=== PATIENT | female | born 1955 | race African-American/Black ===

== ENCOUNTER 2020-06-24 16:47 | Emergency (ER) | payer OTHER ==
[~2020-06-24] VITALS: Ht 162.6 cm; Wt 53.5 kg
[2020-06-24 20:16] LABS: ABSOLUTE NEUTROPHILS 3.8 thou/uL (1.4-8.2); BASOPHILS 0.3 % (0.0-2.0); EOSINOPHILS 0.3 % (0.0-3.0); HEMOGLOBIN 10.6 gm/dL (12.0-15.0); LYMPHOCYTES 17.5 % (24.0-44.0); MCH 27.7 pg (26.0-34.0); MCV 83.9 fL (80.0-100.0); MONOCYTES 11.4 % (1.0-8.0); PLATELET COUNT 260 thou/uL (150-400); POLYS 70.5 % (36.0-66.0); RBC 3.81 mil/uL (4.20-5.00); RDW 13.3 % (10.5-14.5); WBC 5.4 thou/uL (4.0-11.0)
[2020-06-24 20:28] LABS: CALCIUM 9.2 mg/dL (8.5-10.1); CREATININE 1.4 mg/dL (0.6-1.0)
[2020-06-24 20:32] LABS: ALBUMIN 2.5 g/dL (3.4-5.0); TOTAL BILIRUBIN 0.3 mg/dL (0.2-1.0); TOTAL PROTEIN 7.8 g/dL (6.4-8.2)
[2020-06-24] MEDS ORDERED: GLYBURIDE 5 MG T5 M1 PO (21:16)
[2020-06-24] MEDS ORDERED: NORVASC 2.5 MG2.5 M1 PO (21:17)
[2020-06-24] MEDS ORDERED: ZESTRIL5 MG PO (21:18)
[2020-06-24] MEDS ORDERED: HYDROCHLOROTHIA25 M2 PO (21:19)
[2020-06-24 22:31] VITALS: BP 185/106
== END 2020-06-24 22:30 | disposition home or self-care (01) ==
LOC: ER 16:47
PROVIDERS: Physician Assistant
DX: E11.621 Type 2 diabetes mellitus with foot ulcer (principal); L97.519 Non-pressure chronic ulcer of other part of right foot with unspecified severity; Z79.899 Other long term (current) drug therapy

== ENCOUNTER 2020-07-21 18:59 | Inpatient (IN) | payer OTHER ==
[~2020-07-21] VITALS: Ht 149.9 cm; Wt 48.6 kg
--- NOTE | ~2020-07-21 | HC ---
[facility] [place] [address] CONSULTATION Name: GAGE MENDOSA Room #: 210-P ADM IN ..#: [id number] Admission: 07/21/20 Attend Phys: Avinash Calvo MD Discharge: Date of : 51 Report #: [id number] THIS REPORT FOR: cc: KIMANI - No family physician/PCP KIMANI - No family physician/PCP Sky Robertson MD ~ DATE OF SERVICE: 07/22/2020 WOUND CARE CONSULTATION PERSONAL PHYSICIAN: Ford. CHIEF COMPLAINT: Left great toe wound amputation site. HISTORY OF PRESENT ILLNESS: This is a 65-year-old black female with a history of diabetes, who was admitted through the Emergency Department last night for possible stroke with associated slurred speech, right upper extremity weakness and a facial droop. Upon admission, the patient was noted to have a left great toe amputation site, which was not healing. The patient states that amputation occurred secondary to what looks like dry gangrene approximately a month ago. An x-ray was performed in the Emergency Department, which did not show any signs of acute osteomyelitis. The patient denies any other associated wounds at this time. PAST MEDICAL HISTORY: Type 2 diabetes, hypertension, hyperlipidemia, gastroesophageal reflux disease, recent left toe amputation. CURRENT MEDICATIONS: Multiple and I reviewed her medication list. DRUG ALLERGIES: None. SOCIAL HISTORY: The patient denies alcohol or tobacco use. Resides at home independently prior to the admission. FAMILY HISTORY: Not pertinent to current medical condition. REVIEW OF SYSTEMS: CONSTITUTIONAL: The patient denies fevers or chills. NEUROLOGIC: The patient had a right upper extremity weakness and facial droop with slurred speech yesterday. The patient denies any headache. EYES: No complaints. ENT: No complaints. CARDIAC: The patient denies chest pain, palpitations, peripheral edema. RESPIRATORY: The patient denies shortness of breath, cough or wheezes. GASTROINTESTINAL: The patient denies nausea, vomiting, abdominal pain. [facility] [address] [place] [address] CONSULTATION Name: GAGE MENDOSA Room #: [address] [place] [address] [place] [facility]#: [id number] Admission: 07/21/20 Attend Phys: Avinash Calvo MD Discharge: Date of : 53 Report #: [id number] GENITOURINARY: The patient denies urgency or frequency. MUSCULOSKELETAL: No complaints. SKIN: There is a nonhealing surgical wound to the left great toe amputation site. PHYSICAL EXAMINATION: VITAL SIGNS: Temperature 36.8, pulse 70, respirations 20, BP 148/87. GENERAL: This is an alert and oriented x 3, chronically ill-appearing black female who is in no obvious distress. HEENT: Normocephalic. There is slight facial drooping. Pupils are round. Sclerae white. Mucous membranes are dry. NECK: Supple, without JVD. LUNGS: Clear. HEART: Regular. ABDOMEN: Soft, nontender. EXTREMITIES: The patient moves all extremities without difficulty. Evaluation of left lower extremity reveals faint dorsalis pedis and posterior tibial pulse. There is a nonhealing surgical site over the area of the previous great toe, which is filled with slough and probes to bone. The surrounding area is extremely dry skin and desiccated. There is no actual tenderness or warmth. No other associated wounds are noted on the left foot. Right foot is without associated ulcerations or wounds. There is minimal to no edema to bilateral lower extremities. NEUROLOGIC: Cranial nerves 2-12 grossly intact. Motor and sensory grossly intact except for the facial drooping and mild weakness in the right upper extremity. LABORATORY DATA: White count 5.6, hemoglobin 10.2. Sed rate 36. BUN 15, creatinine 1.2, albumin 3.2. C-reactive protein 23.3. X-ray of the left foot shows no acute abnormalities, specifically no bony destruction. IMPRESSION: 1. Nonhealing surgical wound, left great toe amputation site, status post great toe amputation. 2. Diabetes mellitus type 2. 3. Concern for peripheral arterial disease by exam. 4. Recent concern for cerebrovascular accident versus transient ischemic attack. 5. Hypertension. 6. Protein-calorie malnutrition, moderate, albumin of 3.2. PLAN: At this time, we will check arterial Dopplers bilateral lower extremities to evaluate for arterial disease. We will pack the great toe with Xeroform and gauze daily. We will consult Podiatry, Dr. Scott, for evaluation of possible revision of the great toe amputation site. We will make [place] [address] CONSULTATION Name: GAGE MENDOSA Room #: 210-P ADM IN M.R.#: [id number] Admission: 07/21/20 Attend Phys: Avinash Calvo MD Discharge: Date of : 53 Report #: [id number] patient's protein supplementation for healing. We will utilize physical and occupational therapy for strengthening. We will continue all other current medications at this time. I appreciate ability to consult. We will continue to follow the patient. By: 1105 09 Sky Robertson MD /tawana
[~2020-07-21 18:59] MED LIST: GLYBURIDE 5 MG T5 M1 PO; HYDROCHLOROTHIA25 M2 PO; NORVASC 2.5 MG2.5 M1 PO; ZESTRIL5 MG PO
[2020-07-21 19:05] VITALS: BP 149/93
[2020-07-21] MEDS ORDERED: CARVEDILOL12.5 MG PO (19:18)
[2020-07-21] MEDS ORDERED: KEFLEX500 M1 PO (19:19)
[2020-07-21] MEDS ORDERED: NORCO 10-325 T1 EACH PO (19:19)
[2020-07-21] MEDS ORDERED: ONDANSETRON ODT4 MG PO (19:19)
[2020-07-21 19:30] LABS: HEMATOCRIT 31.5 % (37.0-47.0); HEMOGLOBIN 10.2 gm/dL (12.0-15.0); MCH 27.1 pg (26.0-34.0); MCHC 32.5 g/dL (28.0-37.0); MCV 83.2 fL (80.0-100.0); RBC 3.78 mil/uL (4.20-5.00); RDW 14.6 % (10.5-14.5); WBC 5.6 thou/uL (4.0-11.0)
[2020-07-21 19:36] LABS: ANION GAP 11 mmol/L (7-16); BUN 15 mg/dL (7-18); CALCIUM 9.3 mg/dL (8.5-10.1); CHLORIDE 100 mmol/L (98-107); CO2 26 mmol/L (21-32); CREATININE 1.2 mg/dL (0.6-1.0); GLUCOSE 128 mg/dL (74-106); POTASSIUM 3.6 mmol/L (3.5-5.1); SODIUM 137 mmol/L (136-145)
[2020-07-21 19:46] LABS: ALBUMIN 3.2 g/dL (3.4-5.0); SGOT 18 U/L (15-37); SGPT 19 U/L (30-65); TOTAL BILIRUBIN 0.3 mg/dL (0.2-1.0); TOTAL PROTEIN 7.1 g/dL (6.4-8.2); TROPONIN-I <0.06 ng/mL (<0.06)
[2020-07-21 19:51] LABS: ABSOLUTE NEUTROPHILS 2.6 thou/uL (1.4-8.2)
[2020-07-21 19:52] LABS: ANISOCYTOSIS 1+; HYPOCHROMASIA 1+; PLATELET COUNT 199 thou/uL (150-400); POLYCHROMASIA SLIGHT
[2020-07-21 20:57] LABS: URINE BILIRUBIN NEGATIVE (Negative); URINE BLOOD NEGATIVE (Negative); URINE CLARITY CLEAR; URINE COLOR YELLOW; URINE GLUCOSE-RANDOM* NEGATIVE (Negative); URINE KETONES NEGATIVE (Negative); URINE LEUKOCYTES-REFLEX NEGATIVE (Negative); URINE NITRITE-REFLEX NEGATIVE (Negative); URINE PROTEIN (DIPSTICK) 2+ (Negative); URINE UROBILINOGEN 0.2 E.U./dl (0.2-1.0)
[2020-07-21] MEDS ORDERED: LANTUS SOL100 UNIT/1 SUBQ (21:06)
[2020-07-21 21:35] LABS: BACTERIA-REFLEX 1-9 Few /HPF (None Seen); CASTS None Seen /LPF (None Seen); CRYSTALS None Seen /LPF (None Seen); MUCUS 0-3 Light strn/LPF (None Seen); SQUAMOUS 0-3 Few /LPF (0-3); URINE RBC 0-2 Rare /HPF (0-2); URINE WBC-REFLEX 0-5 Rare /HPF (0-5)
[2020-07-21 21:50] VITALS: BP 147/102
[2020-07-21 22:52] VITALS: BP 131/79
[2020-07-21 23:12] VITALS: BP 140/97
[2020-07-22 01:00] VITALS: BP 128/80
[2020-07-22 04:00] VITALS: BP 129/71
--- NOTE | 2020-07-22 04:16 | NUR ---
PT NEW ADMIT YESTERDAY WITH STROKE LIKE SX. ALERT AND ORIENTED. VSS. REPORTS MILD ABDOMINAL PAIN. PT HAS LEFT GREATER TOE AMPUTATED. ASSESSMENTS COMPLETED. SR ON THE MONITOR, DENIES CHEST PAIN. WILL CONTINUE TO MONITOR AND FOLLOW POC.
[2020-07-22 07:00] VITALS: BP 148/87
--- NOTE | 2020-07-22 09:46 | 2DMMODE ---
[facility] [place] [address] 2 D/M-MODE ECHOCARDIOGRAM Name: GAGE MENDOSA Room #: 210-P ADM IN M.R.#: [id number] Admission: 07/21/20 Attend Phys: Avinash Calvo MD Discharge: Date of : 53 Report #: [id number] THIS REPORT FOR: cc: KIMANI - Melisa family physician/PCP KIMANI - Melisa family physician/PCP Baldemar Patrick MD [facility] ~ APPROVED REPORT Study performed: 07/22/2020 08:40:15 EXAM: Comprehensive 2D, Doppler, and color-flow Echocardiogram Patient Location: Bedside Room #: 210 Status: routine BSA: 1.41 HR: 82 bpm BP: 147/87 mmHg Rhythm: NSR Other Information Study Quality: Good Indications CVA/TIA Diabetes Hypertension/HDD Echo Enhancing Agent Indication: Rule out Shunt Agent(s) / Amount(s) Used: Agitated Saline 7 cc 2D Dimensions RVDd: 27.90 mm IVSd: 12.66 (7-11mm) LVOT Diam: 17.47 (18-24mm) LVDd: 40.38 mm PWd: 12.31 (7-11mm) Ascending Ao: 26.28 (22-36mm) LVDs: 28.23 (25-40mm) Aortic Root: 36.77 mm IVC: 13.00 mm Volumes Left Atrial Volume (Systole) Single Plane 4CH: 29.24 mL Single Plane 2CH: 25.75 mL LA ESV Index: 21.00 mL/m2 [facility] [employer] [address] [place] [address] 2 D/M-MODE ECHOCARDIOGRAM Name: MENDOSAGAGE Room #: 210-[facility] IN .R.#: [id number] Admission: 07/21/20 Attend Phys: Avinash Calvo MD Discharge: Date of : 53 Report #: [id number] Aortic Valve AoV Peak Marquis.: 1.33 m/s AO Peak Gr.: 7.05 mmHg LVOT Max P.97 mmHg LVOT Max V: 1.00 m/s MARY Vmax: 1.80 cm2 Mitral Valve E/A Ratio: 0.8 MV Decel. Time: 237.29 ms MV E Max Marquis.: 0.89 m/s MV A Marquis.: 1.13 m/s MV PHT: 68.81 ms IVRT: 189.16 ms Pulmonary Valve PV Peak Marquis.: 1.01 m/s PV Peak Gr.: 4.08 mmHg Pulmonary Vein P Vein S: 0.62 m/s P Vein A: 0.29 m/s P Vein D: 0.27 m/s P Vein A Dur.: 96.9 msec P Vein S/D Ratio: 2.30 Tricuspid Valve TR Peak Marquis.: 2.53 m/s TR Peak Gr.: 25.57 mmHg PA Pressure: 30.00 mmHg Left Ventricle The left ventricle is normal size. There is normal LV segmental wall motion. Mild concentric left ventricular hypertrophy. The left ventricular systolic function is normal. The left ventricular ejection fraction is within the normal range. LVEF is 55-60%. Grade I - abnormal relaxation pattern. Right Ventricle The right ventricle is normal size. The right ventricular systolic function is normal. Atria The left atrium size is normal. Interatrial septum is intact without evidence of ASD or PFO. The right atrium size is normal. Aortic Valve The aortic valve is normal in structure. The Aortic valve is sclerotic. Trace aortic regurgitation. There is no aortic valvular stenosis. [facility] [address] [place] [address] 2 D/M-MODE ECHOCARDIOGRAM Name: AGGE MENDOSA Room #: 210-[facility] IN ..#: [id number] Admission: 07/21/20 Attend Phys: Avinash Calvo MD Discharge: Date of : 53 Report #: [id number] Mitral Valve The mitral valve is normal in structure. Trace to mild mitral regurgitation. No evidence of mitral valve stenosis. Tricuspid Valve The tricuspid valve is normal in structure. There is trace tricuspid regurgitation. 30 mmHg. There is no pulmonary hypertension. Pulmonic Valve The pulmonary valve is normal in structure. There is no pulmonic valvular regurgitation. Great Vessels The aortic root is normal in size. IVC is normal in size and collapses >50% with inspiration. Pericardium There is no pericardial effusion. <Conclusion> Normal left ventricular size Mild left ventricular concentric hypertrophy Grade 1 diastolic dysfunction EF 50-55% Normal right ventricle size and function Normal atrial size Normal aortic valve structure and function Mild mitral valve insufficiency Trace of tricuspid valve insufficiency Pulmonary artery systolic pressure estimated at 30 mmHg No pericardial effusion <ELECTRONICALLY SIGNED> By: Baldemar Patrick MD, FACC 07/22/20945 5 5 Baldemar Patrick MD, FACC /INF
--- NOTE | 2020-07-22 11:01 | NUR ---
Case opened to follow for dc planning. Pt admitted with CVA with rt sided weakness. Restorative Art Embalmer visited with the pt at bedside. She is A&ox4 and reports that she lives in her two story home with 4 steps to enter and 10 up to her bedroom. She reports having a toe amputation a mongth ago at [facility]. She denies having any dme or hh hx. She indicates her son Adiran lives with her but is not home much;she relies on her dtrs Chloe and Julia to help with errands, dr hernandez, shopping, med mngt and laundry. She has 11 children total but they are the most involved with her daily cares. Restorative Art Embalmer has updated both dtrs and cm role introduced and well as possible need for inpt acute rehab needs at de. PT/OT/ST/rehab medicine evals in progress. [facility] is out of network with her ins plan. [facility], [facility] or [facility] maybe alternate options. The pt and her dtrs are in agreement with inpt rehab at any of the above facilities as well as dc to home with HH pending the care team recommendations. Dtr Julia indicates she can stay with the pt at her home if needed. Dtr Chloe to bring by her surgical boot and drop it with security today. Dtr Julia is the gurdeep visitor. Both are available as needed and supportive. The pt was able to provide their phone numbers and reports she recently established a pcp at [facility]. Prior to this [facility]. The pt does have a new rwalker at home but has not needed to use it. Neuro consult in progress. Will follow.
[2020-07-22 12:59] LABS: CHOLESTEROL 127 mg/dL (<200); HDL CHOLESTEROL 32 mg/dL (>40); LDL CHOLESTEROL 59 mg/dL (<100); TRIGLYCERIDE 184 mg/dL (<150); VLDL 37 mg/dL (<40)
--- NOTE | 2020-07-22 14:25 | NUR ---
I have reviewed the documentation by GIANNI STEPHEN from 07/22/20 to 07/22/20 and I concur with it. CURT SORTO, PT, DPT
[2020-07-22 18:00] VITALS: BP 155/95
[2020-07-22 19:18] VITALS: BP 150/91
--- NOTE | 2020-07-22 19:24 | NUR ---
RECEIVED PT'S CARE AROUND 704; PT. ON BED REST; EQUAL CHEST RISING NOTICED; SR ON THE MONITOR; DURING AM ASSESSMENT PT. AOX4; NO C/O PAIN; NIH 4; AM MEDICATION GIVEN; EDUCATED ABOUT FALL PRECAUTIONS; ST. UNDERSTANDING; WORKED WITH PT AND OT; UNSTABLE; ABLE TO STAND UP WITH WALKER AND GAIT BELT; GONE FOR MRI AND US; PER DR. MANCERA PT. SCHEDULED FOR PROCEDURE TOMORROW, 07/23/2020; ORDERS RECEIVED; NO NEURO CHANGES THROUGH THE DAY; BP MEDICATION SCHEDULED; PER DR. YULISSA BUTLER TO GIVE MEDICATION; ASSESSMENT CHARGED; FOLLOWING POC; PASSED ON REPORT;
[2020-07-23 00:06] LABS: GLYCOHEMOGLOBIN (HGB A1C) 9.6 % (4.8-5.6)
--- NOTE | 2020-07-23 03:05 | NUR ---
CARE ASSUMED 1900. PT ALERT AND ORIENTED. STILL EXHIBITING RESIDUALS POST CVA WITH RIGHT SIDED WEAKNESS AND MINIMAL FACIAL DROOP. DENIES PAIN. NPO SINCE MIDNIGHT FOR ORTH PROCEDURE THIS AM. NO ANY OTHER EVENTS. DENIES CHEST PAIN, NAUSEA OR VOMITING. WILL CONTINUE TO FOLLOW POC.
[2020-07-23 03:53] VITALS: BP 147/86
--- NOTE | 2020-07-23 04:39 | NUR ---
PT WAS SCHEDULED TO HAVE SURGICAL REVISION OF LEFT FOOT. COVID SWAB CAME BACK POSITIVE. PT REMAINS ASYMPTOMATIC. JEWEL BEARING BROACHER NOTIFIED. PT TO BE TRANSFERRED TO . [facility] AND [facility] NOTIFIED. WILL TRANSFER PT TO [place] [id number]
--- NOTE | 2020-07-23 05:35 | NUR ---
TRANSAFERED TO THE 3W COVID FLOOR, NO SYMPTOMS. HOWEVER, SHE IS COVID POSITIVE. AND IS DUE TO GO TO SURGERY THIS MORNING.
[2020-07-23 07:49] VITALS: BP 151/94
[2020-07-23 08:43] LABS: CALCIUM 8.4 mg/dL (8.5-10.1); CREATININE 0.9 mg/dL (0.6-1.0); POTASSIUM 4.2 mmol/L (3.5-5.1)
--- NOTE | 2020-07-23 13:46 | H ---
[facility] [place] [address] HISTORY AND PHYSICAL Name: GAGE MENDOSA Room #: 356-P ADM IN M.R.#: [id number] Admission: 07/21/20 Attend Phys: Avinash Calvo MD Discharge: Date of : 53 Report #: [id number] THIS REPORT FOR: cc: FAM - No family physician/PCP FAM - No family physician/PCP Mitchell Dow MD ~ REASON FOR CONSULTATION: Cryptic stroke. HISTORY OF PRESENT ILLNESS: This is a very pleasant 65-year-old female patient who presented to the Emergency Room with slurred speech, right upper arm extremity weakness and facial droop. She underwent evaluation and was not a candidate for TPA at that time per protocol. She had a radiologic evaluation that demonstrated the presence of an acute infarct in the left anterior deven. She said evaluation failed to yield any significant carotid artery or arterial stenosis or plaquing that could explain symptoms. Echocardiogram was unremarkable from an embolic standpoint. The patient states she had not had any similar episodes in the past. She is concerned because she tested COVID positive and does not know how she could have gotten it from anybody since she isolates. Upon further questioning, she has had some episodes of numbness and tingling in the past, but nothing that she worried about secondary to short duration of those episodes. She denies any chest pain, pressure, tightness, heaviness. She does not notice any episodes of palpitations. ALLERGIES: No known drug allergies. MEDICATIONS: At home are insulin, amlodipine, lisinopril, carvedilol, hydrocodone, acetaminophen, cephalexin. She is uncertain as to why she was taking the cephalexin. Glyburide, hydrochlorothiazide. PAST MEDICAL HISTORY: Significant for: 1. Diabetes. 2. Hypertension. 3. Degenerative joint disease. PAST SURGICAL HISTORY: Significant for right toe amputation. ELECTROCARDIOGRAM: Sinus rhythm, nonspecific ST-T wave changes, voltage criteria for LVH. LABORATORY DATA: Noted and reviewed in the chart. REVIEW OF SYSTEMS: Except for symptoms previously mentioned and those commensurate with comorbid state, the 10-point review of systems is negative. RADIOLOGY: Reviewed in the HPI. [facility] [address] [place] [address] HISTORY AND PHYSICAL Name: GAGE MENDOSA Room #: 356-P [facility] IN ..#: [id number] Admission: 07/21/20 Attend Phys: Avinash Calvo MD Discharge: Date of : 53 Report #: [id number] PHYSICAL EXAMINATION: GENERAL: Well-developed, frail appearing female, resting comfortably, in no acute distress, but quite concerned about her COVID positivity. VITAL SIGNS: Temperature 36.5, pulse is 80-90, respiratory rate is 14-16, blood pressure is 150/90, pulse ox 100%. HEENT: Normocephalic, atraumatic. Pupils are equal, round, reactive to light and accommodation. Extraocular muscles are intact. Sclerae and conjunctivae are anicteric. NECK: JVD is normal. Carotid upstrokes are bilaterally symmetrical. No bruits are heard. No thyromegaly. No lymphadenopathy. LUNGS: Clear to auscultation. No wheezes, rhonchi or crackles. No CVA tenderness. CARDIAC: Demonstrates a regular rhythm. Soft systolic murmur noted. No diastolic murmurs present. ABDOMEN: Soft, nontender, nondistended. Normal bowel sounds. EXTREMITIES: Without cyanosis, clubbing or edema. Distal pulses are intact. DTR symmetrical. NEUROLOGIC: Cranial nerves 2-12 are grossly normal and symmetrical. PSYCHIATRIC: Alert, oriented with normal affect. SKIN: Warm and dry. IMPRESSION: 1. Cryptic stroke in an individual who does not have any evidence of vascular etiology. In individuals of this age with comorbidities, atrial fibrillation is the most likely cause, but we need to identify the presence of paroxysmal atrial fibrillation. If indeed she has atrial fibrillation, then she would be a CHADS-VASc 4 requiring full anticoagulation. She will be on a monitor while hospitalized. If no atrial fibrillation is identified, the insertion of a loop recorder may be appropriate to identify and characterize any clandestine asymptomatic AFib that she may have been having in the past. 2. Hypertension. Blood pressure is elevated more than satisfactory. We will reinstitute home medications and observe, it may be secondary to comorbid current events, but we do not want to drop it too low in view of the presence of a cerebrovascular accident and we will defer to Neurology for recommendations. 3. Diabetes mellitus as per primary care. 4. Peripheral vascular disease with significant abnormalities on the arterial Dopplers. I did discuss with her angiography to be performed on Saturday to delineate vascular lesions. I did discuss the risk of the procedure as well as conscious sedation. She does voice understanding and wishes to proceed. <ELECTRONICALLY SIGNED> By: Mitchell Dow MD 07/23/20 1346 [id number] Mitchell Dow MD /nt
[2020-07-23 15:44] VITALS: BP 137/91
[2020-07-23 19:54] VITALS: BP 145/95
--- NOTE | 2020-07-23 22:14 | NUR ---
PT RESTING IN BED. R SIDE WEAKNESS. L FOOT DRESSING DRY AND INTACT. PT UP WITH ASSIST X 1 FOR BSC. PT HAS DRY COUGH. LUNGS DIMINISHED. C/O ABD NAUSEA AND PROVIDED PRN. PT ALSO REQUESTED PRUNE JUICE FOR ASSISTANCE WITH BM AND SNACK. ID LEFT MESSAGE PER IR DR INSTRUCTION TO ASK FOR INPUT RE CLEARANCE FOR ANGIOGRAM ON SATURDAY. ID DID RETURN CALL AND PLACED ORDER FOR CXR AND CYCLE THRESHOLD ON PCR. LAB STATED PCR STILL IN PROCESS. LOVENOX ON HOLD PT TO BE NPO ON SUN NOC. BED ALARM ON.
--- NOTE | 2020-07-24 | NUR ---
Cycle threshold is 26.8. dr hogue notified.
[2020-07-24 02:51] VITALS: BP 163/108
--- NOTE | 2020-07-24 02:55 | NUR ---
PT HAD EMESIS BROWN FOOD PARTICLES, PT STATED IT WAS HER MEATLOAF FROM DINNER.
[2020-07-24 07:37] VITALS: BP 151/105
[2020-07-24 16:49] VITALS: BP 162/105
[2020-07-24 19:45] VITALS: BP 116/85
--- NOTE | 2020-07-25 02:24 | NUR ---
PT TRANSFERRING TO BSC AND IS TOLERATING FAIR. DENIES PAIN. DENIES NAUSEA. RESTING COMFORTABLY. NO NEEDS VOICED. CALL LIGHT WITHIN REACH. FREQUENT OBSERVATION.
[2020-07-25 03:14] VITALS: BP 173/104
[2020-07-25 08:00] VITALS: BP 177/109
--- NOTE | 2020-07-25 14:50 | NUR ---
CARIDAD reviewed chart and spoke with nursing and attending physician. Pt was transferred to 3 from CCU due to having COVID positive test. Pt placed in Enhanced Isolation. Pt is afebrile and not requiring O2. Recommendation made for pt to go to post-acute care for continued rehab services. CARIDAD spoke with Julia, contact listed for pt. Attending physician had discussed SNF placement for pt with Julia earlier today. CARIDAD reviewed in-network SNFs with Julia and discussed need to find an in-network facility and one that accepts COVID pts. Julia requests referral to be sent to [facility] due to location. CARIDAD faxed referral and notified [facility] in admissions of new referral. Julia states that pt's dtr who lives in [place], will plan to take pt home with her after rehab stay. CARIDAD updated nursing and attending physician. CARIDAD is following to assist as needed with discharge planning.
[2020-07-25 15:07] VITALS: BP 147/93
--- NOTE | 2020-07-25 17:12 | NUR ---
Spoke with eldest daughter Mary Talamantes - [phone] - [place], [place] who informed me that she being the eldest daughter and the one who will be taking her mother to live with her in [place] after her skilled stay and subsequent angiogram/plasty afterwards and going forward will be the main contact. The back up contact is her sibling Aruna Timmons - [phone] - [place], [place]. Mary states that incorrectly it has been noted in on the face sheet that brent Cronin at [phone] is a daughter. She is not, rather a family friend that brought the patient to the hospital. This information for correction has been sent to registration. Explained case management plan to be discharged to [facility] for skilled rehab care and then to return to the hospital for "angiogram until no longer felt to be infectious to labor and delivery nurse staff. Reviewed ID's note will continue isolation precaution for 10 days following presentation". This note was put in the medical record by Queenie Ivey ADJUNCT PROFESSOR OF VOICE with cardiology. At that time daughter and now primary contact; Mary will then be in town and will accompany her mother back to [place] with her after her procedure and then subsequent discharged from [facility]. Mary states she and her sister Aruna are notifying their siblings that they are the contacts and to reach out to them instead of calling the nurses station. She states all siblings have been made aware and so is Julia of this plan and in agreement. Notified Lyla the patients nurse of all of above as well. At this time CM with continue to follow the case through discharge.
[2020-07-25 20:53] VITALS: BP 121/85
[2020-07-26 02:35] VITALS: BP 147/97
--- NOTE | 2020-07-26 06:05 | NUR ---
PT MAKING PROGRESS TOWARDS GOALS. PT BRIEFLY OBSERVED EATING YOGURT WITHOUT ANY SIGN OF COUGHING OR CHOKING. [facility] Q4H. AGREE WITH DAY RN SCORING. SEE CHARTING.
[2020-07-26 07:59] VITALS: BP 145/94
[2020-07-26 08:11] VITALS: BP 145/94
[2020-07-26] MEDS ORDERED: LIPITOR10 MG PO (14:18)
[2020-07-26] MEDS ORDERED: CARVEDILOL25 MG PO (14:18)
--- NOTE | 2020-07-26 14:41 | NUR ---
DISCHARGE NOTE: CARIDAD reviewed chart and spoke with nursing and attending physician. Pt remains in Enhanced Isolation due to COVID-19. Pt is afebrile and not requiring O2. PT is medically stable for discharge to SNF today. [facility] is not in-network with pt's insurance policy. CARIDAD spoke with pt's dtr, Mary, via phone to provide update and discuss alternate facilities. Pt's dtr requests referral to be sent to [facility]. Mary has spoken with [facility] yesterday. CARIDAD faxed referral info and spoke with post-acute liaison, Vicky. [facility] is able to accept pt today. They received prior authorization. W/c van transportation scheduled for 1500 per facility's arrangements. CARIDAD spoke with Mary to provide update. Mary is agreeable with discharge plan and will notify additional family members. CARIDAD faxed finalized discharge orders/summary to [facility]. Notified liaison. Chart copy requested. Nursing provided with number to call report. No additional SW needs identified at this time, but is available to assist should needs arise.
--- NOTE | 2020-07-27 12:38 | HC ---
[facility] [place] [address] CONSULTATION Name: GAGE MENDOSA Room #: 356-P [facility] IN M.R.#: [id number] Admission: 07/21/20 Attend Phys: Avinash Calvo MD Discharge: 07/26/20 Date of : 51 Report #: [id number] THIS REPORT FOR: cc: FAM - No family physician/PCP FAM - No family physician/PCP Justice Cardenas DPM ~ DATE OF SERVICE: 07/22/2020 ADMISSION DIAGNOSIS: Mental status change and weakness. CHIEF COMPLAINT/HISTORY OF PRESENT ILLNESS: The 65-year-old female admitted for a recent slurred speech and right-sided weakness. She has concomitant diabetic foot ulceration to the left hallux amputation site. She had the left hallux amputated recently at [facility], presumably for osteomyelitis. I have been consulted for further debridement to the postoperative wound. She had an arterial Doppler ultrasound today, report not available. Blood cultures negative x 2. X-ray of the left foot was read as negative for osteomyelitis. She was on outpatient parenteral antibiotics prior to admission. She denies fevers, chills, nausea or malaise. She denies left foot pain. LABORATORY DATA: WBC 5.6, hemoglobin 10.2, hematocrit 31.5, platelets 199. BUN 15, creatinine 1.2, glucose 128. Albumin 3.2. CRP 23.3. PHYSICAL EXAMINATION: Temperature 98.2, pulse 70, respirations 20, blood pressure 148/87. There is a wound over the left hallux amputation site that measures roughly 5.0 x 2.5 x 1.0 cm. I can see the distal first metatarsal cartilage which is surrounded by yellow and pale fibronecrotic slough. The skin margins are dark around the wound. There is no healthy granulation. There is no fluctuance or crepitation. The foot is warm to the touch with no pallor or cyanosis. There is darkening of the skin to the adjacent second and third toes. I can faintly palpate her posterior tibial and dorsalis pedis pulses. IMPRESSION: Likely osteomyelitis, left distal first metatarsal with deep tissue infection, type 2 diabetes mellitus, peripheral arterial disease, recent right-sided weakness. PLAN: I discussed with Dr. Sky Robertson. I recommend surgical resection of the left distal first metatarsal with wound debridement, and possible amputation of his adjacent second and third toes depending upon their viability at the time of surgery. I did consult Infectious Disease as well as Dr. Garrison, Interventional Radiology for further vascular workup. [place] [address] CONSULTATION Name: GAGE MENDOSA Room #: 356-P [facility] IN ..#: [id number] Admission: 07/21/20 Attend Phys: Avinash Calvo MD Discharge: 07/26/20 Date of : 51 Report #: [id number] n.p.o. past midnight. The patient will be COVID tested tondelvis. I will hold Lovenox tonight as well. <ELECTRONICALLY SIGNED> By: Justice Cardenas DPM 07/27/20 1238 [id number] Justice Cardenas DPM /nt
--- NOTE | 2020-07-28 11:23 | EKG ---
[facility] [address] [place] [address] ELECTROCARDIOGRAM REPORT Name: MENDOSAMICHAELA Room #: 356-P [facility] IN M.R.#: [id number] Admission: 07/21/20 Attend Phys: Avinash Calvo MD Discharge: 07/26/20 Date of : 51 Report #: [id number] THIS REPORT FOR: cc: FAM - No family physician/PCP FAM - No family physician/PCP Baldemar Patrick MD FACC ~ <ELECTRONICALLY SIGNED> By: Baldemar Patrick MD, FACC 07/22/20 0732 19 19 Baldemar Patrick MD, FACC /EPI
== END 2020-07-26 16:04 | DRG 177 ==
LOC: ER 18:59 → 2N 21:19 → EROBS 21:19 → 3W 21:19 → 2N 22:42 → 3W 07-23 05:13
PROVIDERS: Nurse Practitioner; Nurse Practitioner Family; Physician Assistant; ADMIT Hospitalist; ATTEND Hospitalist
DX: U07.1 COVID-19 (principal); I63.9 Cerebral infarction, unspecified; J12.89 Other viral pneumonia; E44.0 Moderate protein-calorie malnutrition; T87.44 Infection of amputation stump, left lower extremity; N17.9 Acute kidney failure, unspecified; G81.91 Hemiplegia, unspecified affecting right dominant side; K21.9 Gastro-esophageal reflux disease without esophagitis; R29.810 Facial weakness; R47.81 Slurred speech; Y83.8 Other surgical procedures as the cause of abnormal reaction of the patient, or of later complication, without mention of misadventure at the time of the procedure; I10 Essential (primary) hypertension; M19.90 Unspecified osteoarthritis, unspecified site; R63.4 Abnormal weight loss; R47.1 Dysarthria and anarthria; I70.203 Unspecified atherosclerosis of native arteries of extremities, bilateral legs; L97.529 Non-pressure chronic ulcer of other part of left foot with unspecified severity; E11.621 Type 2 diabetes mellitus with foot ulcer; E11.51 Type 2 diabetes mellitus with diabetic peripheral angiopathy without gangrene; E78.5 Hyperlipidemia, unspecified; Z89.422 Acquired absence of other left toe(s); Z79.4 Long term (current) use of insulin; Z79.899 Other long term (current) drug therapy; Y92.89 Other specified places as the place of occurrence of the external cause; Z68.21 Body mass index [BMI] 21.0-21.9, adult
CPT/HCPCS: 10081; 10879